=== PATIENT | female | born 1980 | race African-American/Black ===

== ENCOUNTER 2018-05-25 05:22 | Inpatient (IN) | payer OTHER ==
[2018-05-25] VITALS (16 sets, daily range): BP systolic 131–163; BP diastolic 74–104
[~2018-05-25] VITALS: Ht 170.2 cm; Wt 115.7 kg
[~2018-05-25 05:22] MED LIST: ALBUTEROL SULF8.5 GM INH
[2018-05-25] MEDS ORDERED: Thrombin 5000 units spray kit TOPIC ONE (06:37)
[2018-05-25] MEDS ORDERED: Thrombin 5000 units TOPIC ONE (06:38)
[2018-05-25] MEDS ORDERED: Gelfoam Absorbable 1gm powder pkt TOPIC ONE (06:38)
[2018-05-25] MEDS ORDERED: Bacitracin 50000 Units Vial ONE (06:38)
[2018-05-25] MEDS ORDERED: Gelfoam Size TOPIC ONE (06:38)
[2018-05-25] MEDS ORDERED: LR 1000ml 1,000 ML IVLG SCH (06:40)
--- NOTE | 2018-05-25 06:40 | Anethesia Preoperative Eval ---
Anesthesia Pre-op PMH/ROS General Date of Evaluation: May 25, 2018 Anesthesiologist: Harsh ASA Score: ASA 2 Mallampati Score Class I : Soft palate, uvula, fauces, pillars visible Class II: Soft palate, uvula, fauces visible Class III: Soft palate, base of uvula visible Class IV: Only hard plate visible Mallampati Classification: Class III Surgeon: Karissa Diagnosis: Cervical radiculopathy Surgical Procedure: ACDF C5-6 Anesthesia History: none Family History: no anesthesia problems Allergies: Coded Allergies: No Known Allergies (Unverified , 05/23/18) Patient NPO?: Yes NPO Date: May 24, 2018 NPO Time: 2200 Past Medical History Cardiovascular: Denies: HTN, CAD, OR, valve dz, arrhythmia, other Pulmonary: Reports: asthma; Denies: COPD, SAV, other Gastrointestinal/Genitourinary: Denies: GERD, CRI, ESRD, other Neurologic/Psychiatric: Denies: dementia, CVA, depression/anxiety, TIA, other Endocrine: Denies: DM, hypothyroidism, steroids, other HEENT: Denies: cataract (L), cataract (R), glaucoma, [place] (L), [place] (R), other Hematology/Immune: Denies: anemia, DVT, bleeding disorder, other Musculoskeletal/Integumentary: Denies: OA, RA, DJD, DDD, edema, other Other: obesity - morbid PSxH Narrative: tubal ligation, partial thyroidectomy Anesthesia Pre-op Phys. Exam Physician Exam Last Vital Signs Date Time Temp Pulse Resp B/P (MAP) Pulse Ox O2 Delivery O2 Flow Rate FiO2 05/25/18 06:09 Room Air 05/25/18 06:02 96.8 93 18 141/91 (108) 100 Constitutional: NAD Cardiovascular: RRR Respiratory: CTA Airway Exam Mallampati Score: Class III MO: limited Neck: obese ROM: limited Anesthesia Pre-op A/P Labs see chart Urine Test Test 05/25/18 05:35 Urine HCG, Qualitative Negative (NEGATIVE) Studies Pre-op Studies: EKG - sr Risk Assessment & Plan Assessment: ASA II Plan: GA Status Change Before Surgery: No Pre-Antibiotics Drug: Marialuisa Tyler MD May 25, 2018 06:40
[2018-05-25] MEDS ORDERED: Lidocaine 1% MPF 10mg/ml 5ml ONE (06:43)
[2018-05-25] MEDS ORDERED: Propofol 200mg/20ml IV ONE (06:43)
[2018-05-25] MEDS ORDERED: Midazolam 2mg/2ml Inj IVP PRN (06:45)
[2018-05-25] MEDS ORDERED: fentaNYL 100 mcg/2 mL IV PRN (06:45)
[2018-05-25] MEDS ORDERED: DiphenhydrAMINE 50mg/ml Inj IVP PRN (06:45)
[2018-05-25] MEDS ORDERED: LORazepam Inj 2mg/ml 1ml IV PRN (06:45)
[2018-05-25] MEDS ORDERED: Metoclopramide 10mg/2ml Inj IVP PRN (06:45)
[2018-05-25] MEDS ORDERED: Hydromorphone 0.5mg/0.5ml inj IVP PRN ×2 (06:45→11:00)
--- NOTE | 2018-05-25 06:52 | Pre-Procedure Note/Attestation ---
Pre-Procedure Note/Attestation Complete Prior to Procedure Planned Procedure: not applicable Procedure Narrative: Artificial disc replacement C5/6 vs ACDF Indications for Procedure Pre-Operative Diagnosis: C6 radic Discopathy C5/6 Pain in C spine with radic Attestation I attest that I discussed the nature of the procedure; its benefits; risks and complications; and alternatives (and the risks and benefits of such alternatives ), prior to the procedure, with the patient (or the patient's legal signs sales representative). I attest that, if there was a reasonable possibility of needing a blood transfusion, the patient (or the patient's legal signs sales representative) was given the [facility] standardized written summary, pursuant to the Bertin Rosanna Blood Safety Act ([place] Health and Safety Code # 1645, as amended). I attest that I re-evaluated the patient just prior to the surgery and that there has been no change in the patient's H&P, except as documented below:No changes. Tariq Hancock MD May 25, 2018 06:52
[2018-05-25] MEDS ORDERED: Sterile Water Irrig 1000ml IRRIG ONE (07:00)
[2018-05-25] MEDS ORDERED: LR 1000ml ONE (07:00)
[2018-05-25] MEDS ORDERED: Propofol 1,000mg/ 100ml btl IV ONE (07:00)
[2018-05-25] MEDS ORDERED: NS Irrig 1000ml IRRIG ONE ×3 (07:25→08:03)
[2018-05-25] MEDS ORDERED: Lidocaine 1% Plain 30 ml INJ ONE ×2 (07:40→08:59)
[2018-05-25] MEDS ORDERED: Metoclopramide 10mg/2ml Inj ONE (07:52)
[2018-05-25] MEDS ORDERED: Dexamethasone 4mg/ml vial ONE (07:52)
[2018-05-25] MEDS ORDERED: Midazolam 2mg/2ml Inj ONE (08:34)
[2018-05-25] MEDS ORDERED: Esmolol 100mg/10ml Inj ONE (08:59)
--- NOTE | 2018-05-25 10:12 | Brief Operative Note ---
Immediate Post Operative Note Operative Note Pre-op Diagnosis: C6 radic Discopathy C5/6 Pain in C spine with radic Procedure: Revision approach with assist Dr. Melgoza. Right side. ADR C5/6. Post-op Diagnosis: same Findings: consistent w/pre-op dx studies Anesthesia: general Specimen: yes Complications: none Condition: stable Fluids: per anesthesia Estimated Blood Loss: minimal Drains: none Implant(s) used?: Yes - Sarahi C. 17mm wide, 15mm deep 5mm height. Tariq Hancock MD May 25, 2018 10:12
--- NOTE | 2018-05-25 10:32 | Immediate Post-Op Evaluation ---
Immediate Post-Op Evalulation Immediate Post-Op Evalulation Procedure: Artificial disc replacement C5-6 Date of Evaluation: May 25, 2018 Time of Evaluation: 10:33 IV Fluids: 2.1L Blood Products: 0 Estimated Blood Loss: 100 Urinary Output: 350 Blood Pressure Systolic: 147 Blood Pressure Diastolic: 74 Pulse Rate: 99 Respiratory Rate: 18 O2 Sat by Pulse Oximetry: 100 Temperature (Fahrenheit): 97 Pain Score (1-10): 0 Nausea: No Vomiting: No Complications 0 Patient Status: awake, reacts, patent, none Hydration Status: adequate Drug: Ancef 2g Given Within 1 Hr of Incision: Yes Marialuisa Bustamante MD May 25, 2018 10:32
--- NOTE | 2018-05-25 11:10 | Diagnostic Imaging Report ---
INDICATION: Pain, intraoperative TECHNIQUE: Intraoperative imaging Fluoroscopy time: 40.4 seconds Total dose: 0.77604 mGym2 Total number of images: 6 COMPARISON: None FINDINGS: Intraoperative images demonstrate metallic object projected anteriorly to the C6 vertebral body. Subsequent images demonstrate surgical tool projected anteriorly to the C6 vertebral body. Subsequent images document placement of a disc prosthesis at C5-6. IMPRESSION: Intraoperative imaging, as described
[2018-05-25] MEDS ORDERED: HYDROcodone/Acetamin 10/325 tab ORAL PRN (11:15)
--- NOTE | 2018-05-25 12:15 | NUR ---
NURSE NOTES: Received bedside report from Ana PONCE. Pt. in bed, awake, a/o x 4. No sign of distress. On O2 at 3LPM via NC. Denies pain at present. F/C in placed patent/intact draining yellow colored urine. IV site at right hand #18g. in placed running D5 1/2 NS with 20meq. KCL. and left hand #20g. in placed SL. Bed in low position, locked. Call light within reach. Will cont. to monitor.
[2018-05-25] MEDS: D5 1/2NS w/KCl 20mEq 1,000 ML IV SCH ×2 (15:13→23:04)
[2018-05-25] MEDS: ceFAZolin sod 1 GM in D5W 55 ML IV SCH ×2 (16:44→23:13)
[2018-05-25] MEDS: Docusate 100mg cap ORAL SCH (18:00)
[2018-05-25] MEDS: HYDROcodone/Acetamin 10/325 tab ORAL PRN (18:19)
--- NOTE | 2018-05-25 19:30 | NUR ---
NURSE NOTES: Received report from KRIS Comer. Patient in stable condition. Alert, oriented x4. Neck dressing with small stain on R side, otherwise clean and intact. IV infusing in RH intact, patent. Saline lock on left hand, patent, intact. Denies pain at this time. Bed in low position, locked, side rails up x2. Call light within reach. at bedside. Will continue to monitor patient
--- NOTE | 2018-05-25 19:49 | NUR ---
HAND-OFF: Report given to Felix/Katherine PONCE. Pt. remain stable.
--- NOTE | 2018-05-25 22:31 | Operative Note - Dictated ---
DATE OF OPERATION: 05/25/2018 PREOPERATIVE DIAGNOSES: 1. Cervical spondylopathy traumatically at C5-C6. 2. Cervical radiculopathy, C6. 3. Disk protrusion, C5-C6. POSTOPERATIVE DIAGNOSES: 1. Cervical spondylopathy traumatically at C5-C6. 2. Cervical radiculopathy, C6. 3. Disk protrusion, C5-C6. PROCEDURES PERFORMED: 1. Revision exposure at anterior spine with Ear, Nose and Throat specialist, Dr. Castillo Melgoza and history of previous thyroidectomy, right-sided approach. 2. Radical diskectomy and decompression, C5-C6; disk herniation with primary surgeons, Tariq Hancock and office administrative assistant, Kumar Bradley; artificial disk replacement, C5-C6 with office administrative assistant, Kumar Bradley and anesthesiologist, Dr. House. 3. Modifier 22 applied, the patient has significantly high BMI. 4. Use of microscope. SURGEON: Tariq Hancock M.D. APPROACH SURGEON: Castillo Melgoza M.D. as assist for the approach. INDICATIONS FOR PROCEDURE: A pleasant female with significant traumatic spondylopathy and persistent symptomatology. A 4 mm disk protrusion was noted on initial MRI. Subsequent MRI demonstrated persistent disk protrusion with relatively moderate stenotic left C6 and mild C6 foraminal stenosis. Mild central canal stenosis was noted. The patient had kyphosis at C5-C6, mild spondylopathy was noted. The patient had symptomatology corroborating to the MRI with radiation along the arms. The patient had failed a reasonable amount of conservative treatment. The patient was indicated for surgery. No guarantees of outcome were given. The patient was preoperatively cleared. The patient has a history of thyroidectomy with extensive vascular clipping on the right side of the cervical spine. I asked Dr. Castillo Melgoza to assist with the exposure in case there was a catastrophic problem due to the nature of the cervical spine during the exposure due to scar tissue. Dr. Melgoza was present during the approach only and the diskectomy and disk replacement was performed by me as well as my office administrative assistant. Informed consent was provided. No guarantees of outcome were given. The patient was preoperatively cleared and optimized for surgery. DESCRIPTION OF PROCEDURE: She was taken to the operating room. On the day of surgery, she was positively identified. After positive identification, she was taken to the operating room, intubated by the anesthesiologist, appropriate lines were inserted, neuromonitoring was attached, and the patient was positioned. The patient has significant high BMI and there was quite complex positioning methodology with extensive taping of the patient. The previous thyroidectomy incision was identified. The cervical spine was gently extended. Neuromonitoring baselines were obtained and subsequently the right-sided approach was planned with localized x-ray initially. Once the skin markings were made on the right side, Dr. Melgoza was on the right side of the patient and right-sided approach was undertaken. I bluntly dissected platysma and with bipolar, obtained hemostasis, incised with Metzenbaum scissors. I dissected the cervical fascia. The scar tissue from the previous thyroidectomy went cephalad up to the level of the incision and cephalad half of the incision and exposure was relatively not scarred. Bipolar was used for hemostasis. Blunt dissection was carried down through prevertebral fascia. I was able to expose the prevertebral fascia and at this point, Dr. Melgoza left the operating room and my office administrative assistant came in to assist with the remainder of the surgery. I obtained a localized x-ray at C5-C6, exposed the C5-C6 longus colli, and elevated the longus colli safely. Self-retaining retractors brought onto the field. A tabletop retractor was brought into the field. Retractors were maxed out in terms of stability due to the significant soft tissues in the cervical spine. X-ray visualization was quite complex due to shoulders, however, was able to optimally obtain safe quarter of surgery and placed Rincon pins in the center as possible. AP x-rays were obtained to assess for placement of the Rincon pins. Subsequently, the wound was irrigated and the microscope was pulled into view after exposure of the C5-C6 disk level. I removed the disk with annulotomy knife and Kerrisons and curettes. Removed cartilage from the endplates and then gazed the curvature doors dorsally and ventrally to optimize placement of the artificial disk replacement as essentially as possible. After this assessment and fine tuning of the center of the disk space in the medial lateral plane, I performed the radical diskectomy dorsally and removed the PLL with Kerrisons, shaved down and with the dorsal aspect of the vertebral body to further accept the disk replacement from a generous foraminotomy. The right side was decompressed as well as the left side, there was as expected left-sided disk protrusion noted, which was also removed with curettes and Kerrisons. was resected, the dorsal osteophytes and PLL was resected and curetted with fine microcurettes under microscope. A appropriately sized spacer was brought onto the field. Optimal fitment had a Mobi-C artificial disk guide of 15 mm deep, 17 mm wide, 5 mm tall, and this was implanted with direct visualization with excellent press-fit technique. The Rincon pins were gently compressed, removed, and AP assessment demonstrated good positioning of the artificial disk replacement. The wound was copiously irrigated. Retractors were removed and no pulsatile bleeding was noted. The wound was copiously irrigated once again and reapproximated with multiple layers including a 3-0 Vicryl for the platysma and 4-0 Monocryl for skin. COMPLICATIONS: None. DISPOSITION: To recovery room in stable condition. Tariq Hancock M.D. DR: BOBBY JOB#: [id number] CC:
[2018-05-26] VITALS: BP 129/84
[2018-05-26] MEDS: HYDROcodone/Acetamin 10/325 tab ORAL PRN ×2 (02:50→17:50)
[2018-05-26 04:00] VITALS: BP 124/81
[2018-05-26] MEDS: D5 1/2NS w/KCl 20mEq 1,000 ML IV SCH ×2 (06:40→15:00)
--- NOTE | 2018-05-26 07:35 | NUR ---
HAND-OFF: Report given to KRIS Decker. Patient ini stable condition.
[2018-05-26 07:54] LABS: ANION GAP 10 mmol/L (5-15); BLOOD UREA NITROGEN 5 mg/dL (7-18); CARBON DIOXIDE 23 MMOL/L (21-32); CHLORIDE 104 MMOL/L (98-107); CREATININE 0.9 MG/DL (0.55-1.30); POTASSIUM 4.1 MMOL/L (3.5-5.1); SODIUM 137 MMOL/L (136-145)
[2018-05-26 08:00] VITALS: BP 127/81
--- NOTE | 2018-05-26 08:14 | NUR ---
NURSE NOTES: Pt is awake no complaints of pain at this time. Informed of cervical collar use at bedside, prior to getting out of bed. Bandage is clean and intact. Denies pain. Physical therapy will be seeing pt today. F/C in place flowing freely urine yellow and clear. Call light in reach
[2018-05-26] MEDS: Docusate 100mg cap ORAL SCH ×3 (09:00→17:53)
--- NOTE | 2018-05-26 09:42 | 48 Hour Post Anesthesia Eval ---
Post Anesthesia Evaluation Procedure: Artificial disc replacement C5-6 Date of Evaluation: May 26, 2018 Time of Evaluation: 09:41 Blood Pressure Systolic: 132 0: 76 Pulse Rate: 72 Respiratory Rate: 20 Temperature (Fahrenheit): 97.6 O2 Sat by Pulse Oximetry: 98 Airway: patent Nausea: No Vomiting: No Pain Intensity: 3 Hydration Status: adequate Cardiopulmonary Status: stable Mental Status/LOC: patient returned to baseline Follow-up Care/Observations: n/a Post-Anesthesia Complications: none Follow-up care needed: N/A Ryan De La Cruz MD May 26, 2018 09:42
--- NOTE | 2018-05-26 11:56 | NUR ---
NURSE NOTES: Pt ambulated with physical therapy no complaints of dizziness. Denies numbness or odd sensation, to fingers , necks or back. Bowel sounds present in all quadrants, abdomen soft, has not had a bowel movement as yet, but is passing flatus. Current plan of care will be followed
[2018-05-26 12:00] VITALS: BP 138/69
--- NOTE | 2018-05-26 12:00 | NUR ---
NURSE NOTES: Pt up with physical therapy tolerated well no complaints of dizziness. Gait stable. Pt returned to room hobbs catheter removed . Voiding well .
--- NOTE | 2018-05-26 12:57 | NUR ---
CASE MANAGEMENT:REVIEW 37 YR OLD FEMALE HERE FOR ELECTIVE SURGERY SI: CERVICAL RADICULOPATHY 96.8 93 18 141/91 100% ON RA IS: TO SURGERY: CERVICAL DISCECTOMY AND FUSION IVF@125/HR NORCO PO Q4HRS : MED/SURG [facility]
--- NOTE | 2018-05-26 15:26 | NUR ---
P.T Note: P.T evaluation completed and treatment initiated per spinal protocol. Please refer to P.T evaluation for current functional status. Skilled P.T service is warranted to ensure safety and compliance with spinal protocol.
[2018-05-26 16:00] VITALS: BP 131/78
--- NOTE | 2018-05-26 17:30 | NUR ---
NURSE NOTES: Dr Buchanan here seen pt cleared pt for discharge. Stated to phone Dr. Hancock for pt mobility limitations and dressing care. Dr Buchanan provided an order pain management Percocet
--- NOTE | 2018-05-26 17:30 | NUR ---
NURSE NOTES: Pt is ambulating to the restroom, voiding well. has not had a bowel movement but does have presence of bowel sounds. Has all sensation in extremities.
--- NOTE | 2018-05-26 17:45 | General Progress Note ---
Assessment/Plan Assessment/Plan C6 radic Discopathy C5/6 Pain in C spine with radic Revision approach Right side ADR C5/6 PLAN 1. incentive spirometry 2. SCDs 3. PT evaluation and therapy 4. Hydration 5. Pain management 6. discharge once stable with outpatient follow up. Subjective Allergies: Coded Allergies: No Known Allergies (Unverified , 05/23/18) Subjective asked to assist with post op care Objective Last 24 Hour Vital Signs Date Time Temp Pulse Resp B/P (MAP) Pulse Ox O2 Delivery O2 Flow Rate FiO2 05/26/18 09:42 72 20 98 05/26/18 09:00 Room Air 05/26/18 08:00 98.1 95 20 127/81 (96) 97 05/26/18 04:00 98.2 97 18 124/81 (95) 97 05/26/18 00:00 98.5 93 18 129/84 (99) 98 05/25/18 22:20 131/85 (100) 05/25/18 21:35 160/104 05/25/18 21:00 Room Air 05/25/18 20:00 98.1 106 18 160/104 (122) 100 Intake and Output 05/25/18 05/26/18 19:00 07:00 Intake Total 2425 ml 1250 ml Output Total 450 ml 2450 ml Balance 1975 ml -1200 ml Intake IV Total 2425 ml 1250 ml Output Urine Total 350 ml 2450 ml Estimated Blood Loss 100 ml Laboratory Tests 05/26/18 06:25: Sodium Level 137, Potassium Level 4.1, Chloride Level 104, Carbon Dioxide Level 23, Anion Gap 10, Blood Urea Nitrogen 5L, Creatinine 0.9, Estimat Glomerular Filtration Rate > 60, Glucose Level 128H, Calcium Level 9.0 Height (Feet): 5 Height (Inches): 7.00 Weight (Pounds): 255 Objective WDWN NAD clear breath sounds bilaterally without rhonchi or wheeze [id number] without MRG NABS nontender no HSM no CCE nonfocal Que Michel MD May 26, 2018 17:45
--- NOTE | 2018-05-26 19:00 | NUR ---
NURSE NOTES: Dr Hancock gave approval for discharge home. Gave instructions for pt to leave bandage in place for 4 days remove the bandage on Tuesday and to take a complete shower. She is to visit him in 2 weeks. Pt limitations as tolerated no heaving lifting limit movement of the neck. Pt gave pt a cervical collar. Collar to be worn for pt comfort only. Per MD does not need to use cervical collar.
--- NOTE | 2018-05-26 19:25 | NUR ---
HAND-OFF: Report given to Harish RN.
--- NOTE | 2018-05-26 19:30 | NUR ---
NURSE NOTES: Pt provided with Dr. Hancock instructions for dressing change , auto body repairman limitations. Pt informed to keep bandage on till Tuesday ....remove dressing take a complete shower . Apply gauze and paper tape: follow up with a visit in 2 weeks. Cervical Collar to be worn merely for her comfort
--- NOTE | 2018-05-28 14:21 | Discharge Summary ---
Discharge Summary Hospital Course Date of Admission May 25, 2018 at 05:22 Date of Discharge May 26, 2018 at 22:07 Admitting Diagnosis cervical radiculopathy Reason for Hospitalization: elective surgery HPI Vivian Wilson is a 37 year old female who was admitted on May 25, 2018 at 05:22 for Cervicalgia, Cervical Radiculopathy. She was admitted for elective surgery. Consultations dr Michel/IM Procedures s/p 05/25/[address] Hancock 1. Revision exposure at anterior spine with Ear, Nose and Throat specialist, Dr. Castillo Melgoza and history of previous thyroidectomy, right-sided approach. 2. Radical diskectomy and decompression, C5-C6; disk herniation with primary surgeons, Tariq Hancock and assistant research scientist, Kumar Bradley; artificial disk replacement, C5-C6 with assistant research scientist, Kumar Bradley and anesthesiologist, Dr. House. 3. Modifier 22 applied, the patient has significantly high BMI. 4. Use of microscope. Hospital Course status post surgery course of recovery uneventful initially IV fluids s/p perioperative antibiotics neurovascular status closely monitored, stable incision clean, dry, and intact pain management addressed ; pain controlled hemodynamically stable ambulated with PT fall precautions maintained; safe for ambulation started on liquid diet , throat lozenges provided as needed for comfort diet advanced as tolerated , IV fluids discontinued GI prophylaxis provided antiemetics were on board as needed voided freely bowel regimen instituted patient was stable for discharge discharge instructions provided follow up with surgeon as outpatient as advised by surgeon FINAL DIAGNOSIS 1. Cervical spondylopathy traumatically at C5-C6. 2. Cervical radiculopathy, C6. 3. Disk protrusion, C5-C6 4. s/p revision, radical diskectomy and decompression, C5-C6; disk herniation, artificial disk replacement, right side C5-6. Discharge Condition Upon Discharge: stable Discharge Disposition Patient was discharged to Home (01) Discharge Instructions Discharge Instructions Special Instructions I have been assigned to complete a D/C Summary on this account. I was not involved in the patient management Malorie Purdy NP May 28, 2018 14:21
== END 2018-05-26 22:07 | disposition home or self-care (01) | DRG 518 ==
LOC: SDSOVERFLO 05:22 → 3E 12:15
PROC: 0RR30JZ Replacement of Cervical Vertebral Disc with Synthetic Substitute, Open Approach (ICD-10-PCS; principal; 2018-05-25 07:00)
DX: M50.122 Cervical disc disorder at C5-C6 level with radiculopathy (principal); M48.8X2 Other specified spondylopathies, cervical region; M48.02 Spinal stenosis, cervical region
CPT/HCPCS: 36415; 72040; 76000; 80048; 81025; 86850; 86900; 86901; 87081; J2250; J2405; J2765